=== PATIENT | female | born 1930 | race Caucasian/White ===

== ENCOUNTER 2017-01-18 18:12 | Inpatient (IN) | payer MEDICARE ==
[~2017-01-18] VITALS: Ht 167.6 cm; Wt 82.5 kg
[2017-01-18 18:59] VITALS: BP 133/83; PULSE 68; RESP 20; O2SAT 92
[2017-01-18] MEDS ORDERED: SODIUM CHLOR 0.9% 1000 ML INJ 1,000 ML IV ONE (19:21)
[2017-01-18] MEDS ORDERED: valACYclovir HCL 500 MG TAB PO ONE (19:30)
[2017-01-18] MEDS ORDERED: SODIUM CHLORIDE 0.9% FLUSH 10 ML FLUSH IVF PRN (19:30)
[2017-01-18] MEDS ORDERED: ONDANSETRON HCL 4 MG/2 ML VIAL IVP ONE (19:30)
--- NOTE | 2017-01-18 19:35 | PD ---
HPI Chief Complaint: General Weakness Time Seen by Provider: 19:20 Travel History International Travel<30 days: No Contact w/Intl Traveler<30days: No Traveled to known affect area: No History of Present Illness HPI 86-year-old female brought in by EMS from her home where she lives with her daughter with reports of altered mental status. Decreased food intake for the past one half days. Patient reportedly is sleeping a lot. Patient has a history of heart attack approximately 5 years ago. Patient has no significant complaints other than she is thirsty. She feels she is brought in as her daughter feels she cannot care for her anymore. Patient has allergies to sulfa, erythromycin, as omeprazole, omeprazole, and penicillin. Patient has no complaints of pain, headache, shortness of breath, chest pain, abdominal pain , or urinary symptoms. Patient is not diabetic. Her only chief complaint is she is thirsty. PFSH Past Medical History Arthritis: Yes (PREETHI KNEES AND PREETHI WRISTS R/T OSTEOARTHRITIS) Asthma: Yes Cancer: No Cardiac Catheterization: Yes Cardiovascular Problems: Yes Chest Pain: Yes COPD: Yes Coronary Artery Disease: Yes Diminished Hearing: Yes (LEFT EAR) Hypertension: Yes Myocardial Infarction: Yes (03/24) Menopausal: Yes Past Surgical History Abdominal Surgery: Yes (GALLBLADDER) Cholecystectomy: Yes Coronary Stent: Yes Eye Surgery: Yes (CATARACTS BILATERAL EYES) Genitourinary Surgery: Yes (BLADDER ATROPHY) Oral Surgery: Yes (TEETH EXTRACTION FOR DENTURES, TONSILLECTOMY) Social History Alcohol Use: No Tobacco Use: No Substance Use: No Allergies-Medications (Allergen,Severity, Reaction): Coded Allergies: Sulfa (Sulfonamide Antibiotics) (Verified Allergy, Severe, 01/01/17) erythromycin base (Verified Allergy, Severe, 01/01/17) penicillin G (Verified Allergy, Severe, 01/01/17) esomeprazole (Verified Allergy, Intermediate, Diarrhea, 01/01/17) omeprazole (Verified Allergy, Intermediate, Diarrhea, 01/01/17) Reported Meds & Prescriptions Reported Meds & Active Scripts Active No Active Prescriptions or Reported Medications Review of Systems Except as stated in HPI: all other systems reviewed are Neg General / Constitutional: No: Fever Eyes: No: Visual changes HENT: No: Headaches Cardiovascular: No: Chest Pain or Discomfort Respiratory: No: Shortness of Breath Gastrointestinal: No: Abdominal Pain Genitourinary: No: Dysuria Musculoskeletal: No: Pain Skin: No Rash Neurologic: No: Weakness Psychiatric: No: Depression Endocrine: No: Polydipsia Hematologic/Lymphatic: No: Easy Bruising Physical Exam Narrative GENERAL: Patient appears in no acute distress. She is alert and oriented and talkative. SKIN: Warm and dry. Normal color. Normal turgor. Patient has obvious fullness herpes zoster rash to the right thoracic chest wall at the T6 7 level. She denies pain in this area. It wraps around the right breast is no sign of abscess or significant cellulitis. HEAD: Atraumatic. Normocephalic. EYES: Pupils equal and round. No scleral icterus. No injection or drainage. ENT: No nasal bleeding or discharge. Mucous membranes pink and moist. Pharynx is clear. Airway is patent. NECK: Trachea midline. Supple nontender. CARDIOVASCULAR: Regular rate and rhythm. RESPIRATORY: No accessory muscle use. Clear to auscultation. Breath sounds equal bilaterally. GASTROINTESTINAL: Abdomen soft, non-tender, nondistended. Hepatic and splenic margins not palpable. MUSCULOSKELETAL: Extremities without clubbing, cyanosis, or edema. No obvious deformities. NEUROLOGICAL: Awake and alert. No obvious cranial nerve deficits. Motor grossly within normal limits. Five out of 5 muscle strength in the arms and legs. Normal speech. PSYCHIATRIC: Appropriate mood and affect; insight and judgment normal. Data Data Last Documented VS Vital Signs Date Time Temp Pulse Resp B/P (MAP) Pulse Ox O2 Delivery O2 Flow Rate FiO2 01/18/17 19:20 20 97 Nasal Cannula 2.00 01/18/17 18:59 68 133/83 (100) Orders Orders Electrocardiogram (01/18/17 19:21) Complete Blood Count With Diff (01/18/17 19:21) Comprehensive Metabolic Panel (01/18/17 19:21) Magnesium (Mg) (01/18/17 19:21) Ckmb (Isoenzyme) Profile (01/18/17 19:21) Troponin I (01/18/17 19:21) Act Partial Throm Time (Ptt) (01/18/17 19:21) Prothrombin Time / Inr (Pt) (01/18/17 19:21) Urinalysis - C+S If Indicated (01/18/17 19:21) Chest, Single Ap (01/18/17 19:21) Ecg Monitoring (01/18/17 19:21) Iv Access Insert/Monitor (01/18/17 19:21) Oximetry (01/18/17 19:21) Ondansetron Inj (Zofran Inj) (01/18/17 19:30) Sodium Chloride 0.9% Flush (Ns Flush) (01/18/17 19:30) Sodium Chlor 0.9% 1000 Ml Inj (Ns 1000 M (01/18/17 19:21) Valacyclovir (Valtrex) (01/18/17 19:30) Lactic Acid (01/18/17 19:21) Admit Order (Ed Use Only) (01/18/17 21:45) Labs Laboratory Tests Test 01/18/17 19:15 01/18/17 20:05 01/18/17 21:15 White Blood Count 7.3 TH/MM3 Red Blood Count 5.36 MIL/MM3 Hemoglobin 15.1 GM/DL Hematocrit 46.0 % Mean Corpuscular Volume 85.8 FL Mean Corpuscular Hemoglobin 28.1 PG Mean Corpuscular Hemoglobin Concent 32.8 % Red Cell Distribution Width 15.4 % Platelet Count 196 TH/MM3 Mean Platelet Volume 9.6 FL Neutrophils (%) (Auto) 61.4 % Lymphocytes (%) (Auto) 23.8 % Monocytes (%) (Auto) 12.8 % Eosinophils (%) (Auto) 1.4 % Basophils (%) (Auto) 0.6 % Neutrophils # (Auto) 4.5 TH/MM3 Lymphocytes # (Auto) 1.7 TH/MM3 Monocytes # (Auto) 0.9 TH/MM3 Eosinophils # (Auto) 0.1 TH/MM3 Basophils # (Auto) 0.0 TH/MM3 CBC Comment DIFF FINAL Differential Comment Prothrombin Time 10.9 SEC Prothromb Time International Ratio 1.0 RATIO Activated Partial Thromboplast Time 26.4 SEC Blood Urea Nitrogen 47 MG/DL Creatinine 4.19 MG/DL Random Glucose 87 MG/DL Total Protein 6.2 GM/DL Albumin 2.7 GM/DL Calcium Level 8.2 MG/DL Magnesium Level 2.3 MG/DL Alkaline Phosphatase 85 U/L Aspartate Amino Transf (AST/SGOT) 21 U/L Alanine Aminotransferase (ALT/SGPT) 13 U/L Total Bilirubin 0.6 MG/DL Sodium Level 136 MEQ/L Potassium Level 4.0 MEQ/L Chloride Level 100 MEQ/L Carbon Dioxide Level 26.9 MEQ/L Anion Gap 9 MEQ/L Estimat Glomerular Filtration Rate 10 ML/MIN Total Creatine Kinase 50 U/L Troponin I LESS THAN 0.02 NG/ML Lactic Acid Level 1.0 mmol/L [facility] Medical Decision Making Medical Screen Exam Complete: Yes Emergency Medical Condition: Yes Medical Record Reviewed: Yes Differential Diagnosis Altered Mental status. Weakness. Electrolyte imbalance. Cardiac syndrome. Shingles. Dehydration. UTI. Narrative Course Patient appears medically stable at time of exam. EKG and chest x-ray are ordered. Labs ordered including CBC, CMP, cardiac panel, lactic acid, and urinalysis. Patient is given 1000 mL of normal saline bolus as well as 1000 mg valacyclovir by mouth. CBC is unremarkable. Coagulation studies are normal. Lactic acid is 1.0. CMP shows normal electrolytes with sodium 136, potassium 4.0. Chloride 100. BUN is significantly elevated at 47 with a creatinine of 4.19. GFR is estimated at 10. Patient has no history of previous renal insufficiency. Calcium is 8.2, troponin is less than 0.02. Total protein is 6.2 and albumin is 2.7. Urinalysis is sent and pending. Call was placed to the hospitalist for admission for renal failure. Patient was discussed with Dr. Villalobos who accepted the patient for admission. Diagnosis Primary Impression: Shingles outbreak Qualified Codes: B02.9 - Zoster without complications Additional Impression: Acute renal failure Qualified Codes: N17.9 - Acute kidney failure, unspecified Admitting Information Admitting Physician Requests: Admit Referrals: Primary Care Physician Scripts No Active Prescriptions or Reported Meds Condition: Stable William Feng Jan 18, 2017 19:35
--- NOTE | 2017-01-18 19:44 | RADRPT ---
EXAM DATE/TIME: 01/18/2017 19:37 [facility] COMPARISON: No previous studies available for comparison. INDICATIONS : Cough for one day. MEDICAL HISTORY : None. SURGICAL HISTORY : None. ENCOUNTER: Initial ACUITY: 1 day PAIN SCORE: 0/10 LOCATION: Bilateral chest FINDINGS: A single view of the chest demonstrates the lungs to be symmetrically aerated without evidence of mas s, infiltrate or effusion. The cardiomediastinal contours are unremarkable. Osseous structures are intact. CONCLUSION: Normal examination. The acromial clavicular joint is widened on the left likely chronic. Contreras Johnson MD on January 18, 2017 at 19:42 Board Certified Radiologist. This report was verified electronically.
[2017-01-18 20:00] VITALS: BP 139/78; PULSE 60; RESP 14; O2SAT 97
[2017-01-18 20:40] LABS: AUTOMATED NEUTROPHIL # 4.5 TH/MM3 (1.8-7.7); BASOPHIL % 0.6 % (0.0-2.0); EOSINOPHIL # 0.1 TH/MM3 (0-0.4); EOSINOPHIL % 1.4 % (0.0-4.0); HEMOGLOBIN 15.1 GM/DL (11.6-15.3); LYMPH % 23.8 % (9.0-44.0); LYMPHOCYTE # 1.7 TH/MM3 (1.0-4.8); MEAN CELL VOLUME 85.8 FL (80.0-100.0); MEAN CORPUSCULAR HEMOGLOBIN 28.1 PG (27.0-34.0); MEAN CORPUSCULAR HGB CONC 32.8 % (32.0-36.0); MEAN PLATELET VOLUME 9.6 FL (7.0-11.0); MONO % 12.8 % (0.0-8.0); MONOCYTE # 0.9 TH/MM3 (0-0.9); NEUT % 61.4 % (16.0-70.0); PLATELET COUNT 196 TH/MM3 (150-450); RED BLOOD COUNT 5.36 MIL/MM3 (4.00-5.30); RED CELL DISTRIBUTION WIDTH 15.4 % (11.6-17.2); WHITE BLOOD COUNT 7.3 TH/MM3 (4.0-11.0)
[2017-01-18 20:54] LABS: PROTHROMBIN TIME - PATIENT 10.9 SEC (9.8-11.6)
[2017-01-18 21:00] VITALS: BP 134/74
[2017-01-18 21:09] LABS: ALT (GPT) 13 U/L (10-53)
[2017-01-18 21:27] LABS: ALBUMIN 2.7 GM/DL (3.4-5.0); ALKALINE PHOSPHATASE 85 U/L (45-117); AST (GOT) 21 U/L (15-37); BICARBONATE 26.9 MEQ/L (21.0-32.0); BLOOD UREA NITROGEN 47 MG/DL (7-18); CALCIUM 8.2 MG/DL (8.5-10.1); CHLORIDE 100 MEQ/L (98-107); CREATININE 4.19 MG/DL (0.50-1.00); GLOMERULAR FILTRATION RATE 10 ML/MIN (>89); GLUCOSE,RANDOM 87 MG/DL (74-106); MAGNESIUM 2.3 MG/DL (1.5-2.5); SODIUM (NA) 136 MEQ/L (136-145); TOTAL BILIRUBIN ADULT 0.6 MG/DL (0.2-1.0); TOTAL PROTEIN 6.2 GM/DL (6.4-8.2); TROPONIN I LESS THAN 0.02 NG/ML (0.02-0.05)
--- NOTE | 2017-01-18 21:52 | PD ---
Physical Exam Narrative I, Dr. Pal, have reviewed the advance practice practitioner's documentation and am in agreement, met with the patient face to face, made the diagnosis, and the medical decision making was done by me. *My assessment and Findings: Electrolyte abnormality vs. dehydration 86yo F was sent here by her daughter. She is not sure why but does complain of being thirsty. Denies any fever, chest pain, sob, n/v, abdominal pain, focal weakness or numbness. Pt does have a rash on right breast that appears to be like shingle that has crusted over. Pt has no pain there. Labs reviewed, no leukocytosis. H/H normal. BUN/creatinine is elevated at 47/4.19 which is higher thna prior of 13/0.83 in 2011. This is an acute change as far as we know. Will admit for ANNA. Troponin negative. Lactic acid normal. CXR normal. Data Data Last Documented VS Vital Signs Date Time Temp Pulse Resp B/P (MAP) Pulse Ox O2 Delivery O2 Flow Rate FiO2 01/18/17 19:20 20 97 Nasal Cannula 2.00 01/18/17 18:59 68 133/83 (100) Orders Orders Electrocardiogram (01/18/17 19:21) Complete Blood Count With Diff (01/18/17 19:21) Comprehensive Metabolic Panel (01/18/17 19:21) Magnesium (Mg) (01/18/17 19:21) Ckmb (Isoenzyme) Profile (01/18/17 19:21) Troponin I (01/18/17 19:21) Act Partial Throm Time (Ptt) (01/18/17 19:21) Prothrombin Time / Inr (Pt) (01/18/17 19:21) Urinalysis - C+S If Indicated (01/18/17 19:21) Chest, Single Ap (01/18/17 19:21) Ecg Monitoring (01/18/17 19:21) Iv Access Insert/Monitor (01/18/17 19:21) Oximetry (01/18/17 19:21) Ondansetron Inj (Zofran Inj) (01/18/17 19:30) Sodium Chloride 0.9% Flush (Ns Flush) (01/18/17 19:30) Sodium Chlor 0.9% 1000 Ml Inj (Ns 1000 M (01/18/17 19:21) Valacyclovir (Valtrex) (01/18/17 19:30) Lactic Acid (01/18/17 19:21) Admit Order (Ed Use Only) (01/18/17 21:45) Labs Laboratory Tests Test 01/18/17 19:15 01/18/17 20:05 01/18/17 21:15 White Blood Count 7.3 TH/MM3 Red Blood Count 5.36 MIL/MM3 Hemoglobin 15.1 GM/DL Hematocrit 46.0 % Mean Corpuscular Volume 85.8 FL Mean Corpuscular Hemoglobin 28.1 PG Mean Corpuscular Hemoglobin Concent 32.8 % Red Cell Distribution Width 15.4 % Platelet Count 196 TH/MM3 Mean Platelet Volume 9.6 FL Neutrophils (%) (Auto) 61.4 % Lymphocytes (%) (Auto) 23.8 % Monocytes (%) (Auto) 12.8 % Eosinophils (%) (Auto) 1.4 % Basophils (%) (Auto) 0.6 % Neutrophils # (Auto) 4.5 TH/MM3 Lymphocytes # (Auto) 1.7 TH/MM3 Monocytes # (Auto) 0.9 TH/MM3 Eosinophils # (Auto) 0.1 TH/MM3 Basophils # (Auto) 0.0 TH/MM3 CBC Comment DIFF FINAL Differential Comment Prothrombin Time 10.9 SEC Prothromb Time International Ratio 1.0 RATIO Activated Partial Thromboplast Time 26.4 SEC Blood Urea Nitrogen 47 MG/DL Creatinine 4.19 MG/DL Random Glucose 87 MG/DL Total Protein 6.2 GM/DL Albumin 2.7 GM/DL Calcium Level 8.2 MG/DL Magnesium Level 2.3 MG/DL Alkaline Phosphatase 85 U/L Aspartate Amino Transf (AST/SGOT) 21 U/L Alanine Aminotransferase (ALT/SGPT) 13 U/L Total Bilirubin 0.6 MG/DL Sodium Level 136 MEQ/L Potassium Level 4.0 MEQ/L Chloride Level 100 MEQ/L Carbon Dioxide Level 26.9 MEQ/L Anion Gap 9 MEQ/L Estimat Glomerular Filtration Rate 10 ML/MIN Total Creatine Kinase 50 U/L Troponin I LESS THAN 0.02 NG/ML Lactic Acid Level 1.0 mmol/L [facility] Supervised Visit with YING: Yes Interpretation(s) EKG: Sinus bradycardia at 57bpm. Normal axis. No ST segment elevation or depression. Diagnosis Primary Impression: Shingles outbreak Qualified Codes: B02.9 - Zoster without complications Additional Impression: Acute renal failure Qualified Codes: N17.9 - Acute kidney failure, unspecified Referrals: Primary Care Physician Scripts No Active Prescriptions or Reported Meds Condition: Deandra Chandra DO Jan 18, 2017 21:52
[2017-01-18] MEDS ORDERED: HEPARIN SODIUM - SQ 10,000 UNITS/ML VIAL SQ SCH (22:00)
[2017-01-18 22:05] LABS: BLOOD, URINE SMALL (NEG); GLUCOSE,URINE NEG (NEG); HYALINE CAST, URINE 50 /lpf (RARE); KETONE, URINE NEG (NEG); MUCUS URINE FEW /lpf (OCC); NITRITE,URINE NEG (NEG); SQUAMOUS EPITHELIAL CELL URINE 5 /hpf (0-5); URINE COLOR YELLOW (YELLW/STRAW); URINE LEUKOCYTE ESTERASE SMALL (NEG)
[2017-01-18 22:14] LABS: BILIRUBIN, URINE NEG (NEG)
[2017-01-18] MEDS ORDERED: SODIUM CHLORIDE 0.9% FLUSH 10 ML FLUSH IV FLUSH PRN (22:30)
[2017-01-18] MEDS ORDERED: NALOXONE HCL 0.4 MG/ML AMP IV PUSH PRN (22:30)
[2017-01-18] MEDS ORDERED: ACETAMINOPHEN 325 MG TAB PO PRN (22:30)
--- NOTE | 2017-01-18 23:07 | RADRPT ---
EXAM DATE/TIME: 01/18/2017 22:39 [facility] COMPARISON: No previous studies available for comparison. INDICATIONS : Increased BUN and creatinine. MEDICAL HISTORY : Chronic obstructive pulmonary disease. Cardiovascular disease CVA. Asthma. Dyspnea. Myocardial infa rction. SURGICAL HISTORY : Tonsillectomy. Cholecystectomy. Bilateral cataracts. ENCOUNTER: Initial ACUITY: 1 day PAIN SCORE: 0/10 LOCATION: Bilateral inguinal MEASUREMENTS: RIGHT KIDNEY: 9.9 x 4.8 x 4.6 cm LEFT KIDNEY: 9.0 x 4.1 x 4.5 cm FINDINGS: RIGHT KIDNEY: Renal cortex is normal in thickness and echotexture. No hydronephrosis, stone, or mass. LEFT KIDNEY: Renal cortex is normal in thickness and echotexture. No hydronephrosis, stone, or mass. BLADDER: Within normal limits given the degree of distension. CONCLUSION: Renal ultrasound within normal limits. Fernando Jorgensen MD on January 18, 2017 at 23:05 Board Certified Radiologist. This report was verified electronically.
[2017-01-18 23:19] VITALS: BP 134/67; PULSE 62; RESP 18; TEMP 97.5; O2SAT 98
[2017-01-19] VITALS (7 sets, daily range): BP systolic 118–136; BP diastolic 62–72; PULSE 56–61; RESP 18–20; TEMP 97.4–97.7; O2SAT 92–98
--- NOTE | 2017-01-19 00:10 | HHI.HP ---
[facility] Service [facility]ists Primary Care Physician No Primary Care Physician Admission Diagnosis Acute Renal Failure/Shingles Diagnoses: Travel History International Travel<30 Days: No Contact w/Intl Traveler <30 Da: No Traveled to Known Affected Are: No History of Present Illness 86-year-old female brought to the emergency department for altered mental status. The patient's daughter provided most of the history to the emergency department physician. On our interview, the patient could only tell me that she has not been feeling well for some period of time. She also reports pain along her right upper thorax. Per emergency department records, the patient has been lethargic and has had decreased food intake for the past 1-1/2 days. She denies chest pain, headache, shortness of breath or abdominal pain. Physical exam was remarkable for a zoster-appearing rash in the distribution of T6/T7. Lab work was significant for a creatinine of 4.19 (creatinine from 2012 was 0.83). Chest x-ray showed no evidence of acute disease. Patient without leukocytosis and is afebrile. Review of Systems Denies fever or chills Denies blurry vision, otorrhea, rhinorrhea Denies sore throat and cough No chest pain, palpitations, shortness of breath No abdominal pain Denies constipation/diarrhea/nausea/vomiting Denies muscle pain/weakness No rashes Past Family Social History Past Medical History Unable to obtain from patient Her medical records the patient has a past medical history significant for osteoarthritis, coronary artery disease, CVA, cataracts, hypertension Past Surgical History Unable to obtain from patient. Medical record review showed cholecystectomy, heart catheter with stent placement, cataract surgery, bladder surgery, tonsillectomy Reported Medications Reported Meds & Active Scripts Active No Active Prescriptions or Reported Medications Allergies: Coded Allergies: Sulfa (Sulfonamide Antibiotics) (Verified Allergy, Severe, 01/01/17) erythromycin base (Verified Allergy, Severe, 01/01/17) penicillin G (Verified Allergy, Severe, 01/01/17) esomeprazole (Verified Allergy, Intermediate, Diarrhea, 01/01/17) omeprazole (Verified Allergy, Intermediate, Diarrhea, 01/01/17) Family History Unable to obtain Social History Patient denies tobacco, alcohol and illicit drugs. Physical Exam Vital Signs Vital Signs Date Time Temp Pulse Resp B/P (MAP) Pulse Ox O2 Delivery O2 Flow Rate FiO2 01/18/17 23:19 97.5 62 18 134/67 (89) 98 01/18/17 21:00 134/74 (94) 01/18/17 20:00 60 14 139/78 (98) 97 Nasal Cannula 2.00 01/18/17 19:20 20 97 Nasal Cannula 2.00 01/18/17 18:59 68 20 133/83 (100) 92 Physical Exam GENERAL: White female lying in bed sleeping SKIN: Herpes zoster rash with one open area along the side of the right thoracic chest wall. Patient states the area is tender to palpation. HEAD: Atraumatic. Normocephalic. No temporal or scalp tenderness. EYES: Pupils equal round and reactive. Extraocular motions intact. No scleral icterus. No injection or drainage. ENT: Nose without bleeding, purulent drainage or septal hematoma. Throat without erythema, tonsillar hypertrophy or exudate. Uvula midline. Airway patent. NECK: Trachea midline. No JVD or lymphadenopathy. Supple, nontender, no meningeal signs. CARDIOVASCULAR: Regular rate and rhythm without murmurs, gallops, or rubs. RESPIRATORY: Clear to auscultation. Breath sounds equal bilaterally. No wheezes , rales, or rhonchi. GASTROINTESTINAL: Abdomen soft, non-tender, nondistended. No hepato-splenomegaly , or palpable masses. No guarding. MUSCULOSKELETAL: Extremities without clubbing, cyanosis, or edema. No joint tenderness, effusion, or edema noted. No calf tenderness. NEUROLOGICAL: Awake and alert. Cranial nerves II through XII intact. Motor and sensory grossly within normal limits. Normal speech. Laboratory Laboratory Tests Test 01/18/17 19:15 01/18/17 20:05 01/18/17 21:15 White Blood Count 7.3 Red Blood Count 5.36 Hemoglobin 15.1 Hematocrit 46.0 Mean Corpuscular Volume 85.8 Mean Corpuscular Hemoglobin 28.1 Mean Corpuscular Hemoglobin Concent 32.8 Red Cell Distribution Width 15.4 Platelet Count 196 Mean Platelet Volume 9.6 Neutrophils (%) (Auto) 61.4 Lymphocytes (%) (Auto) 23.8 Monocytes (%) (Auto) 12.8 Eosinophils (%) (Auto) 1.4 Basophils (%) (Auto) 0.6 Neutrophils # (Auto) 4.5 Lymphocytes # (Auto) 1.7 Monocytes # (Auto) 0.9 Eosinophils # (Auto) 0.1 Basophils # (Auto) 0.0 CBC Comment DIFF FINAL Differential Comment Prothrombin Time 10.9 Prothromb Time International Ratio 1.0 Activated Partial Thromboplast Time 26.4 Blood Urea Nitrogen 47 Creatinine 4.19 Random Glucose 87 Total Protein 6.2 Albumin 2.7 Calcium Level 8.2 Magnesium Level 2.3 Alkaline Phosphatase 85 Aspartate Amino Transf (AST/SGOT) 21 Alanine Aminotransferase (ALT/SGPT) 13 Total Bilirubin 0.6 Sodium Level 136 Potassium Level 4.0 Chloride Level 100 Carbon Dioxide Level 26.9 Anion Gap 9 Estimat Glomerular Filtration Rate 10 Total Creatine Kinase 50 Troponin I LESS THAN 0.02 Lactic Acid Level 1.0 Urine Color YELLOW Urine Turbidity HAZY Urine pH 5.0 Urine Specific [place] 1.018 Urine Protein 30 Urine Glucose (UA) NEG Urine Ketones NEG Urine Occult Blood SMALL Urine Nitrite NEG Urine Bilirubin NEG Urine Urobilinogen 2.0 Urine Leukocyte Esterase SMALL Urine RBC 12 Urine WBC 3 Urine Squamous Epithelial Cells 5 Urine Hyaline Casts 50 Urine Mucus FEW Microscopic Urinalysis Comment CULT NOT INDICATED Result Diagram: 01/18/17191401/18/171914 Imaging Last 72 hours Impressions Chest X-Ray 01/18/171920 Signed Impressions: Service Date/Time: Wednesday, January 18, 2017 19:37 - CONCLUSION: Normal examination. The acromial clavicular joint is widened on the left likely chronic. Contreras Johnson MD Renal Ultrasound 01/18/17 0000 Signed Impressions: Service Date/Time: Wednesday, January 18, 2017 22:39 - CONCLUSION: Renal ultrasound within normal limits. Fernando Jorgensen MD Caprini VTE Risk Assessment Caprini VTE Risk Assessment: Mod/High Risk (score >= 2) Caprini Risk Assessment Model Point Value = 1 Point Value = 2 Point Value = 3 Point Value = 5 Age 41-60 Minor surgery BMI > 25 kg/m2 Swollen legs Varicose veins or History of unexplained or recurrent spontaneous Oral contraceptives or hormone replacement Sepsis (< 1 month) Serious lung disease, including pneumonia (< 1 month) Abnormal pulmonary function Acute myocardial infarction Congestive heart failure (< 1 month) History of inflammatory bowel disease Medical patient at bed rest Age 61-74 Arthroscopic surgery Major open surgery (> 45 min) Laparoscopic surgery (> 45 min) Malignancy Confined to bed (> 72 hours) Immobilizing plaster cast Central venous access Age >= 75 History of VTE Family history of VTE Factor V Leiden Prothrombin [id number] Lupus anticoagulant Anticardiolipin antibodies Elevated serum homocysteine Heparin-induced thrombocytopenia Other congenital or acquired thrombophilia Stroke (< 1 month) Elective arthroplasty Hip, pelvis, or leg fracture Acute spinal cord injury (< 1 month) Prophylaxis Regimen Total Risk Factor Score Risk Level Prophylaxis Regimen 0-1 Low Early ambulation 2 Moderate Order ONE of the following: *Sequential Compression Device (SCD) *Heparin 5000 units SQ BID 3-4 Higher Order ONE of the following medications: *Heparin 5000 units SQ TID *Enoxaparin/Lovenox 40 mg SQ daily (WT < 150 kg, CrCl > 30 mL/min) *Enoxaparin/Lovenox 30 mg SQ daily (WT < 150 kg, CrCl > 10-29 mL/min) *Enoxaparin/Lovenox 30 mg SQ BID (WT < 150 kg, CrCl > 30 mL/min) AND/OR *Sequential Compression Device (SCD) 5 or more Highest Order ONE of the following medications: *Heparin 5000 units SQ TID (Preferred with Epidurals) *Enoxaparin/Lovenox 40 mg SQ daily (WT < 150 kg, CrCl > 30 mL/min) *Enoxaparin/Lovenox 30 mg SQ daily (WT < 150 kg, CrCl > 10-29 mL/min) *Enoxaparin/Lovenox 30 mg SQ BID (WT < 150 kg, CrCl > 30 mL/min) AND *Sequential Compression Device (SCD) Assessment and Plan Assessment and Plan 86-year-old female presents with acute kidney injury and herpes zoster of unknown duration 1. ANNA Patient without any known history of renal failure Renal ultrasound within normal limits IV fluids Consult nephrology, appreciate recommendations Follow BMP 2. Herpes zoster Duration of rash unknown to patient and daughter Valacyclovir FEN Renal diet Fluids as above Electrolytes: Monitor and replete when necessary Heparin Physician Certification 2 Midnight Certification Type: Admission for Inpatient Services Order for Inpatient Services The services are ordered in accordance with Medicare regulations or non- Medicare payer requirements, as applicable. In the case of services not specified as inpatient-only, they are appropriately provided as inpatient services in accordance with the 2-midnight benchmark. Estimated LOS (days): 2 2 days is the estimated time the patient will need to remain in the hospital, assuming treatment plan goals are met and no additional complications. Post-Hospital Plan: Not yet determined Bhakti Villalobos MD Jan 19, 2017 00:10
[2017-01-19] MEDS: SODIUM CHLOR 0.9% 1000 ML INJ 1,000 ML IV SCH ×3 (01:35→20:15)
[2017-01-19] MEDS: valACYclovir HCL 500 MG TAB PO SCH ×3 (05:50→21:33)
[2017-01-19] MEDS: SODIUM CHLORIDE 0.9% FLUSH 10 ML FLUSH IV FLUSH SCH ×2 (08:05→21:38)
[2017-01-19] MEDS: HEPARIN SODIUM - SQ 10,000 UNITS/ML VIAL SQ SCH ×2 (08:06→21:33)
[2017-01-19 08:12] LABS: AUTOMATED NEUTROPHIL # 2.2 TH/MM3 (1.8-7.7); BASOPHIL % 0.2 % (0.0-2.0); EOSINOPHIL # 0.1 TH/MM3 (0-0.4); EOSINOPHIL % 1.7 % (0.0-4.0); HEMATOCRIT 30.6 % (35.0-46.0); LYMPH % 26.1 % (9.0-44.0); MEAN CELL VOLUME 87.5 FL (80.0-100.0); MEAN CORPUSCULAR HEMOGLOBIN 28.5 PG (27.0-34.0); MEAN CORPUSCULAR HGB CONC 32.5 % (32.0-36.0); MEAN PLATELET VOLUME 9.6 FL (7.0-11.0); MONO % 14.8 % (0.0-8.0); MONOCYTE # 0.6 TH/MM3 (0-0.9); NEUT % 57.2 % (16.0-70.0); PLATELET COUNT 120 TH/MM3 (150-450); RED CELL DISTRIBUTION WIDTH 15.2 % (11.6-17.2); WHITE BLOOD COUNT 3.9 TH/MM3 (4.0-11.0)
--- NOTE | 2017-01-19 13:11 | HHI.PR ---
Subjective Remarks Follow-up for altered mental status and acute renal failure Patient is AAO 2. She is able to give me her full name and location. Patient' s daughter and granddaughter at the bedside during the interview. Patient stated that patient does have underlying dementia. Her confusion seems to improve but she does repeat the same conversation at times. Patient stated that she has no concern and feels great. Per patient's daughter patient has not been feeling well and has been sleeping the past 10 days. She stated that she barely ate the past 10 days and thinks that she is very dehydrated. Objective Vitals Vital Signs Date Time Temp Pulse Resp B/P (MAP) Pulse Ox O2 Delivery O2 Flow Rate FiO2 01/19/17 08:00 97.6 61 20 128/65 (86) 94 01/19/17 04:37 97.7 57 20 134/70 (91) 98 01/19/17 00:10 58 01/18/17 23:19 97.5 62 18 134/67 (89) 98 01/18/17 21:00 134/74 (94) 01/18/17 20:00 60 14 139/78 (98) 97 Nasal Cannula 2.00 01/18/17 19:20 20 97 Nasal Cannula 2.00 01/18/17 18:59 68 20 133/83 (100) 92 I/O 01/18/17 01/18/17 01/18/17 01/19/17 01/19/17 01/19/17 07:00 15:00 23:00 07:00 15:00 23:00 Intake Total 1000 ml Output Total 100 ml Balance 900 ml Intake IV Total 1000 ml Output Urine Total 100 ml # Voids 1 Result Diagram: 01/19/17 0724 01/18/171914 Objective Remarks GENERAL: in NAD CARDIOVASCULAR: Regular rate and rhythm without murmurs, gallops, or rubs. RESPIRATORY: Breath sounds equal bilaterally. No accessory muscle use. GASTROINTESTINAL: Abdomen soft, non-tender, nondistended. MUSCULOSKELETAL: No cyanosis, or edema. BACK: Nontender without obvious deformity. No CVA tenderness. NEURO: AAO X 2. Upper and lower extremity strength grossly intact. Sensation is intact. Medications and IVs Current Medications Ondansetron HCl (Zofran Inj) 4 mg ONCE ONCE IVP Last administered on t 20:09; Start 01/18/17 at 19:30; Stop 01/18/17 at 19:31; Status DC Sodium Chloride (NS Flush) 2 ml UNSCH PRN IVF FLUSH AFTER USING IV ACCESS Last administered on 01/18/17 20:09; Start 01/18/17 at 19:30; Stop 01/19/17 at 00:26 ; Status DC Sodium Chloride 1,000 ml @ 1,000 mls/hr Q1H ONCE IV Last administered on 20:08; Start 01/18/17 at 19:21; Stop 01/18/17 at 20:20; Status DC Valacyclovir HCl (Valtrex) 1,000 mg ONCE ONCE PO Last administered on 20:09; Start 01/18/17 at 19:30; Stop 01/18/17 at 19:31; Status DC Sodium Chloride (NS Flush) 2 ml UNSCH PRN IV FLUSH FLUSH AFTER USING IV ACCESS ; Start 01/18/17 at 22:30 Sodium Chloride (NS Flush) 2 ml BID IV FLUSH ; Start 01/19/17 at 09:00 Acetaminophen (Tylenol) 650 mg Q4H PRN PO TEMP > 100.4; Start 01/18/17 at 22:30 Heparin Sodium (Porcine) (Heparin Inj) 5,000 units Q8H SQ ; Start 01/18/17 at 22 :00; Stop 01/19/17 at 00:25; Status DC Naloxone HCl (Narcan Inj) 0.4 mg UNSCH PRN IV PUSH SEE LABEL COMMENTS; Start 01/18/17 at 22:30 Sodium Chloride 1,000 ml @ 100 mls/hr Q10H IV Last administered on 01/19/17 01:35; Start 01/19/17 at 00:15 Valacyclovir HCl (Valtrex) 1,000 mg Q8HR PO Last administered on 01/19/17 05: 50; Start 01/19/17 at 06:00 Heparin Sodium (Porcine) (Heparin Inj) 5,000 units Q12HR SQ Last administered on 01/19/17 08:06; Start 01/19/17 at 09:00 A/P Assessment and Plan 86-year-old female presents with acute kidney injury and herpes zoster of unknown duration with decreased by mouth intake for the past 10 days due to fatigue Acute renal failure -Most likely secondary from dehydration since patient had decreased oral intake for the past 10 days. Renal ultrasound negative. -Pending BMP from today. -Continue with IV fluids. -Continue with strict ins and outs. Avoid nephrotoxins. -Aircraft Communicator already consulted. Herpes zoster -Duration of rash unknown to patient and daughter -Continue with Valacyclovir -Patient does complain of itchiness will start low-dose Claritin. Anemia -Unknown baseline. No active bleeding. May be due to acute renal failure. -Most likely secondary to hemoconcentration. Since WBC and platelets also decreased. -Continue to monitor. -Can be worked up as outpatient. DVT prophylaxis -Heparin renally dose. Lorena Huang MD Jan 19, 2017 13:11
[2017-01-19] MEDS ORDERED: PILL SPLITTER OTHER PRN (13:30)
[2017-01-19] MEDS: LORATADINE 10 MG TAB PO SCH (14:15)
--- NOTE | 2017-01-19 14:34 | MB ---
cc: ZAKI BRO MD DATE OF CONSULTATION 01/19/17 REASON FOR CONSULTATION Elevated BUN and creatinine for evaluation. HISTORY OF PRESENT ILLNESS This is an 86-year-old female with past medical history of hypertension, cerebrovascular accident, ischemic heart disease, osteoarthritis was brought to the hospital because of shingles in the back. I was called to see the patient because of elevated BUN and creatinine. The patient was found to have creatinine of 4.1. She does not know if she has any renal disease and she is very hard of hearing and not able to give much history. Most of the history was taken from the patient's chart according to which patient has shingles and was getting the treatment as outpatient and transferred to the hospital because of altered mental status, generalized weakness and was found to have elevated creatinine. The patient has not been eating very well for 1-2 days before admission. There is no history of nausea or vomiting. No history of diarrhea. Denies any abdominal pain. She has this pain in the back where the rash is. There is no history of dysuria, hematuria. She has urinary incontinence. PAST MEDICAL HISTORY Hypertension, ischemic heart disease, history of cerebrovascular accident. Osteoarthritis. PAST SURGICAL HISTORY Cataract surgery, cholecystectomy, cardiac catheterization with stent placement, tonsillectomy, bladder surgery. REVIEW OF SYSTEMS Limited since she is not answering some of the questions. Denies any headache, dizziness or blurring of vision. No shortness of breath. No chest pain. No history of any abdominal pain. She has pain in the back where she has the rash from the shingles. SOCIAL HISTORY The patient has no history of smoking or alcoholism. FAMILY HISTORY Noncontributory. ALLERGIES SHE IS ALLERGIC TO ERYTHROMYCIN, OMEPRAZOLE, ESOMEPRAZOLE, PENICILLIN G, SULFA DRUGS. MEDICATIONS Currently she is on the following medications: 1. Normal saline at 100 an hour. 2. Heparin 5000 units q. 12-hour. 3. Valtrex 1000 milligrams q. 8-hour. 4. Tylenol. 5. Narcan as needed. PHYSICAL EXAMINATION GENERAL: On examination the patient is awake, alert. She is [id number], not in acute distress. She has also possible underlying dementia. VITAL SIGNS: The last blood pressure is 128/65, temperature 97.6, oxygen saturation 94-98%. There is no hypotensive episode during this admission. HEENT: Pupils are mid constricted. Nonicteric sclera, conjunctiva pale. NECK: Supple. JVD is not elevated. LUNGS: The patient has bilateral good air entry with occasional wheezing. HEART: S1-S2, regular rhythm. ABDOMEN: Abdomen is soft, lax. There is no definite tenderness. Bowel sounds positive. EXTREMITIES: She has mild edema. INVESTIGATION WBC count is 3.9, hemoglobin 10.0, platelet count of 120, neutrophils __.2, sodium 136. Potassium 4.0, chloride 100, bicarb 26.9, BUN 47, creatinine 4.1. Calcium 8.2. AST, ALT normal. Trop I is less than 0.02. Albumin is 2.7, total protein 6.2, INR is 1.0. Urinalysis showing that there is protein of 13. Ultrasound of the kidneys done which shows kidneys are 9 to 9.9 cm. There is no hydronephrosis, stone or mass. Chest x-ray was done and it is showing no infiltrate. The repeat BMP is still pending. Previous creatinine was normal in 2011. ASSESSMENT/PLAN 1. Acute kidney injury. 2. Dehydration. 3. Herpes zoster. 4. Anemia and leukopenia. 5. History of CVA and possible underlying dementia. The patient has been nonoliguric. She had acute kidney injury, most likely this is related to either prerenal or possibility of Valtrex causing the acute kidney injury. I will check the urine sodium osmolality and agree with continuing the IV fluid and follow the urine output and the BUN and creatinine. Avoid any nephrotoxins. Thank you for the consultation. I will follow the patient while she is in the hospital. MD MARIAA Lerma/LIDA /12:57 PM /2:09 PM
[2017-01-19 14:35] LABS: BICARBONATE 23.8 MEQ/L (21.0-32.0); CALCIUM 7.2 MG/DL (8.5-10.1); CREATININE 4.18 MG/DL (0.50-1.00)
[2017-01-19 14:54] LABS: CALCIUM-PROTEIN CORRECTED 8.2 MG/DL (8.5-10.1); TOTAL PROTEIN 5.3 GM/DL (6.4-8.2)
[2017-01-19 22:59] LABS: SODIUM,RANDOM URINE 44 MEQ/L
[2017-01-19 23:47] LABS: OSMOLALITY,URINE 304 MOSM/KG (300-1300)
[2017-01-20] VITALS (7 sets, daily range): BP systolic 116–153; BP diastolic 63–81; PULSE 55–75; RESP 18–20; TEMP 96.2–98; O2SAT 90–96
[2017-01-20] MEDS: valACYclovir HCL 500 MG TAB PO SCH ×3 (06:14→21:47)
[2017-01-20] MEDS: SODIUM CHLOR 0.9% 1000 ML INJ 1,000 ML IV SCH (06:15)
[2017-01-20] MEDS: SODIUM CHLORIDE 0.9% FLUSH 10 ML FLUSH IV FLUSH SCH ×2 (08:14→21:00)
[2017-01-20] MEDS: HEPARIN SODIUM - SQ 10,000 UNITS/ML VIAL SQ SCH ×2 (08:15→21:00)
[2017-01-20] MEDS: LORATADINE 10 MG TAB PO SCH (08:15)
--- NOTE | 2017-01-20 11:06 | EKG ---
Date Performed: 01/18/2017 Time Performed: 21:34:07 PTAGE: 86 years EKG: SINUS BRADYCARDIA Consider anteroseptal ischemia BORDERLINE ECG PREVIOUS TRACING : 02/23/2012 20.03 DOCTOR: Jesse Hernandez Interpretating Date/Time 01/20/2017 11:05:19
--- NOTE | 2017-01-20 11:20 | HHI.NPPN ---
Subjective History of Present Illness 86-year-old female with past medical history of hypertension, cerebrovascular accident, ischemic heart disease, osteoarthritis was brought to the hospital because of shingles in the back. I was called to see the patient because of elevated BUN and creatinine. The patient was found to have creatinine of 4.1. Her Creatinine was 0.8 in 2011. Additional Remarks Patient is more alert, sitting on the chair and has itching in upper back, no SOB. Objective Data Data 01/20/17 01/21/17 19:00 07:00 # Voids 3 Vital Signs Date Time Temp Pulse Resp B/P (MAP) Pulse Ox O2 Delivery O2 Flow Rate FiO2 01/20/17 08:07 98.0 63 20 153/74 (100) 94 01/20/17 04:00 97.1 55 18 146/70 (95) 96 01/20/17 00:00 97.6 62 18 143/63 (89) 95 01/19/17 21:25 61 01/19/17 20:00 97.5 56 20 136/72 (93) 95 01/19/17 17:00 97.5 60 18 118/72 (87) 95 01/19/17 13:08 97.4 59 20 126/62 (83) 92 -: 01/19/17 0724 01/19/17 1230 Physical Exam General Appearance: No Acute Distress, Comfortable Eyes Eye Exam: Pupils Equal Throat Throat Exam: Oral Mucosa [place] & Moist Neck Neck Exam: Neck Supple Pulmonary Resp Exam: Breath Sounds Equal, No Distress, Rhonchi, Decreased Bases Cardiology CV Exam: Regular, Normal Sinus Rhythm Gastrointestinal/Abdomen GI Exam: Soft, Non-Tender, Bowel Sounds Present, Non-Distended Integumentary Skin Exam: Lesion(s) (rash with few vesicles in upper back.) Extremeties Extremities Exam: No Edema Neurologic Neuro Exam: Alert, Awake Assessment/Plan Assessment Summary: ANNA/Acute Renal Failure, Dehydration Problem List: (1) Macular degeneration, age related, nonexudative ICD Codes: H35.31 - Nonexudative age-related macular degeneration Status: Acute (2) Shingles outbreak ICD Codes: B02.9 - Zoster without complications Status: Acute (3) Acute renal failure ICD Codes: N17.9 - Acute kidney failure, unspecified Status: Acute Plan Patient has Acute kidney injury. Her Creatinine was 0.8 in 2011. Now non oliguric. Renal U/S showing normal size kidneys. Creatinine is almost same, 4.1, K is normal. Continue IVF, follow the urine out put and BMP. Problem Qualifiers (1) Shingles outbreak: Qualified Codes: B02.9 - Zoster without complications (2) Acute renal failure: Qualified Codes: N17.9 - Acute kidney failure, unspecified Candis Pascal MD Jan 20, 2017 11:20
--- NOTE | 2017-01-20 12:00 | HHI.PR ---
Subjective Remarks Follow-up visit on 86 year old who brought to ED due to altered metal status. She has a PMH of HTN, OA, CVA, cataracts, and hard or hearing. Patient seen and examined in room with granddaughter and grandson at bedside. She is awake and alert, in no acute distress after using bathroom. Patient repots that she does not remember how she was doing prior to coming to the hospital. States she was going to the bathroom without issues. Granddaughter states patient lives with daughter who had noticed patient was not eating as much and not using the bathroom as much either. Today patient states she is doing fine with no pain, denies fever, chills, nausea, vomiting or diarrhea. She does repot itching on her back from the rash that she currently has. Patient has discussed with granddaughter possibly going to [place] once she is discharged from the hospital. Objective Vitals Vital Signs Date Time Temp Pulse Resp B/P (MAP) Pulse Ox O2 Delivery O2 Flow Rate FiO2 01/20/17 08:07 98.0 63 20 153/74 (100) 94 01/20/17 04:00 97.1 55 18 146/70 (95) 96 01/20/17 00:00 97.6 62 18 143/63 (89) 95 01/19/17 21:25 61 01/19/17 20:00 97.5 56 20 136/72 (93) 95 01/19/17 17:00 97.5 60 18 118/72 (87) 95 01/19/17 13:08 97.4 59 20 126/62 (83) 92 I/O 01/19/17 01/19/17 01/19/17 01/20/17 01/20/17 01/20/17 07:00 15:00 23:00 07:00 15:00 23:00 # Voids 1 3 Result Diagram: 01/19/17 0724 01/19/17 1230 Imaging Last Impressions Chest X-Ray 01/18/17 1921 Signed Impressions: Service Date/Time: Wednesday, January 18, 2017 19:37 - CONCLUSION: Normal examination. The acromial clavicular joint is widened on the left likely chronic. Contreras Johnson MD Renal Ultrasound 01/18/17 0000 Signed Impressions: Service Date/Time: Wednesday, January 18, 2017 22:39 - CONCLUSION: Renal ultrasound within normal limits. Fernando Jorgensen MD Objective Remarks GENERAL: White female lying in bed, in no acute distress SKIN: Herpes zoster rash with open area along the side of the right thoracic chest wall as well as posterior right mid back. Patient states the area is tender to palpation. HEAD: Atraumatic. Normocephalic. No temporal or scalp tenderness. EYES: Pupils equal round and reactive. ENT: Nose without bleeding, purulent drainage or septal hematoma. Throat without erythema, tonsillar hypertrophy or exudate. Uvula midline. Airway patent. NECK: Trachea midline. CARDIOVASCULAR: Regular rate and rhythm without murmurs, gallops, or rubs. RESPIRATORY: Clear to auscultation. Breath sounds equal bilaterally. No wheezes , rales, or rhonchi. GASTROINTESTINAL: Abdomen soft, non-tender, nondistended. No guarding. MUSCULOSKELETAL: Extremities without clubbing, cyanosis, or edema. No joint tenderness, effusion, or edema noted. No calf tenderness. NEUROLOGICAL: Awake and alert. Motor and sensory grossly within normal limits. Normal speech, movies all extremities spontaneously. A/P Problem List: (1) Acute renal failure ICD Code: N17.9 - Acute kidney failure, unspecified Status: Acute (2) Shingles outbreak ICD Code: B02.9 - Zoster without complications Status: Acute Assessment and Plan 86-year-old female presents with acute kidney injury and herpes zoster of unknown duration, reports of low PO intake, AML progressive for the past two weeks per granddaughter. ANNA - Patient without any known history of renal failure - Renal ultrasound within normal limits - IV fluids, strict I&O's, voids recorded. Spoke to nurse aid and aid, please measure output. - Consult nephrology recommends continuing IVF, follow I&O's and BMP, appreciate recommendations - Follow BMP for today Herpes zoster - Duration of rash unknown to patient and daughter - Valacyclovir Discharge Planning Patient has already visited [facility] in the past, would like to go to [facility] when discharged. Still not ready to go home, continue following renal function. Attending Statement The exam, history, and the medical decision-making described in the above note were completed with the assistance of the mid-level provider. I reviewed and agree with the findings presented. I attest that I had a [id number] encounter with the patient on the same day, and personally performed and documented my assessment and findings in the medical record. Patient complains of itchiness at the shingle site. She stated that she realized that she was confused yesterday. She stated that she did not even know she was in the hospital. Patient is AAO 2. She has difficult time giving me the date which is her baseline. Otherwise she answers questions appropriately and understands. Her granddaughter and her at the bedside during the interview. They also stated that patient is doing a lot better. Patient states she's making good urine output. Urine output is not being documented. Gen NAD CV RR. no r/m.g Abd soft NDNT Acute renal failure non-oliguric Confusion, resolved. Dementia Shingles Patient seems back to her baseline. Kidney function not improving but she is making good urine output. Transcribing Operator Head following. Continue with IV fluids. Will give Atarax when necessary. Continue to monitor. Problem Qualifiers (1) Acute renal failure: Qualified Codes: N17.9 - Acute kidney failure, unspecified (2) Shingles outbreak: Qualified Codes: B02.9 - Zoster without complications Elliot Flores Jan 20, 2017 12:00 Lorena Huang MD Jan 20, 2017 14:27
[2017-01-20 13:57] LABS: HEMATOCRIT 41.6 % (35.0-46.0); HEMOGLOBIN 13.8 GM/DL (11.6-15.3); MEAN CELL VOLUME 86.3 FL (80.0-100.0); MEAN CORPUSCULAR HEMOGLOBIN 28.7 PG (27.0-34.0); MEAN CORPUSCULAR HGB CONC 33.2 % (32.0-36.0); MEAN PLATELET VOLUME 9.6 FL (7.0-11.0); PLATELET COUNT 150 TH/MM3 (150-450); RED BLOOD COUNT 4.82 MIL/MM3 (4.00-5.30); RED CELL DISTRIBUTION WIDTH 15.4 % (11.6-17.2); WHITE BLOOD COUNT 4.9 TH/MM3 (4.0-11.0)
[2017-01-20 14:14] LABS: BICARBONATE 24.4 MEQ/L (21.0-32.0); CALCIUM 7.7 MG/DL (8.5-10.1); CREATININE 4.26 MG/DL (0.50-1.00)
[2017-01-20] MEDS ORDERED: hydrOXYzine HCL 25 MG TAB PO ONE (14:30)
[2017-01-20] MEDS: CALAMINE/PRAMOXINE LOTION 180 ML BTL TOPICAL SCH ×2 (18:49→21:47)
[2017-01-21] VITALS: BP 125/82; PULSE 73; RESP 20; TEMP 97.7; O2SAT 96
[2017-01-21 04:00] VITALS: BP 134/75; PULSE 59; RESP 18; TEMP 98.6; O2SAT 96
[2017-01-21] MEDS: SODIUM CHLOR 0.9% 1000 ML INJ 1,000 ML IV SCH ×2 (04:16→16:00)
[2017-01-21] MEDS: valACYclovir HCL 500 MG TAB PO SCH ×2 (05:41→14:45)
[2017-01-21 08:00] VITALS: BP 150/83; PULSE 67; RESP 20; TEMP 97.5; O2SAT 99
[2017-01-21] MEDS: SODIUM CHLORIDE 0.9% FLUSH 10 ML FLUSH IV FLUSH SCH ×2 (09:00→21:00)
[2017-01-21] MEDS: hydrOXYzine HCL 25 MG TAB PO PRN (09:40)
[2017-01-21] MEDS: LORATADINE 10 MG TAB PO SCH (09:40)
[2017-01-21] MEDS: HEPARIN SODIUM - SQ 10,000 UNITS/ML VIAL SQ SCH ×2 (09:41→22:08)
[2017-01-21 10:19] LABS: HEMATOCRIT 40.7 % (35.0-46.0); HEMOGLOBIN 13.4 GM/DL (11.6-15.3); MEAN CELL VOLUME 85.8 FL (80.0-100.0); MEAN CORPUSCULAR HEMOGLOBIN 28.3 PG (27.0-34.0); MEAN CORPUSCULAR HGB CONC 32.9 % (32.0-36.0); MEAN PLATELET VOLUME 9.4 FL (7.0-11.0); PLATELET COUNT 165 TH/MM3 (150-450); RED BLOOD COUNT 4.74 MIL/MM3 (4.00-5.30); RED CELL DISTRIBUTION WIDTH 14.7 % (11.6-17.2); WHITE BLOOD COUNT 4.5 TH/MM3 (4.0-11.0)
[2017-01-21 10:55] LABS: BICARBONATE 21.7 MEQ/L (21.0-32.0); CALCIUM 7.6 MG/DL (8.5-10.1); CREATININE 4.01 MG/DL (0.50-1.00)
[2017-01-21 12:33] VITALS: BP 123/65; PULSE 66; RESP 20; TEMP 97.5; O2SAT 94
[2017-01-21] MEDS: CALAMINE/PRAMOXINE LOTION 180 ML BTL TOPICAL SCH ×2 (14:46→22:08)
--- NOTE | 2017-01-21 16:33 | HHI.PR ---
Subjective Remarks Follow-up visit shingles, altered mental status, acute failure. Patient seen and examined today lying in bed. Granddaughter at the bedside but she was leaving. Patient states she is doing well. States she doesn't know why she is in the hospital. Discussed and explained with patient course of events, her condition, and the plan of treatment. Denies pain or discomfort. Complaints of itching on the right chest going under her breast portion were to shingles is present. Denies any nausea, vomiting, diarrhea. Denies any shortness of breath or dyspnea. Denies chest pain or palpitations. Objective Vitals Vital Signs Date Time Temp Pulse Resp B/P (MAP) Pulse Ox O2 Delivery O2 Flow Rate FiO2 01/21/17 12:33 97.5 66 20 123/65 (84) 94 01/21/17 08:00 97.5 67 20 150/83 (105) 99 01/21/17 04:00 98.6 59 18 134/75 (94) 96 01/21/17 00:00 97.7 73 20 125/82 (96) 96 01/20/17 20:00 96.7 60 18 129/64 (85) 90 01/20/17 18:00 64 01/20/17 17:03 96.2 75 20 116/71 (86) 95 I/O 01/20/17 01/20/17 01/20/17 01/21/17 01/21/17 01/21/17 07:00 15:00 23:00 07:00 15:00 23:00 Intake Total 360 ml Output Total 625 ml 180 ml Balance -265 ml -180 ml Intake Oral 360 ml Output Urine Total 625 ml 180 ml # Voids 3 2 Result Diagram: 01/21/1714 01/21/1714 Imaging Last Impressions Chest X-Ray 01/18/17 192 Signed Impressions: Service Date/Time: Wednesday, January 18, 2017 19:37 - CONCLUSION: Normal examination. The acromial clavicular joint is widened on the left likely chronic. Contreras Johnson MD Renal Ultrasound 01/18/17 0000 Signed Impressions: Service Date/Time: Wednesday, January 18, 2017 22:39 - CONCLUSION: Renal ultrasound within normal limits. Fernando Jorgensen MD Objective Remarks GENERAL: This is a well-nourished, well-developed patient, in no apparent distress. SKIN: Warm and dry. Right side of the chest under her breast area notable herpetic lesions dry. HEENT: Normocephalic. Pupils equal round and reactive. Nose without bleeding. Airway patent. NECK: Trachea midline. CARDIOVASCULAR: Regular rate and rhythm without murmurs, gallops, or rubs. RESPIRATORY: Clear to auscultation. Breath sounds equal bilaterally. No wheezes , rales, or rhonchi. GASTROINTESTINAL: Abdomen soft, non-tender, nondistended. Bowel Sounds normoactive x4. MUSCULOSKELETAL: Extremities without clubbing, cyanosis. Bilateral lower extremity trace edema. NEUROLOGICAL: Awake and alert. Oriented to time, place, person. No focal neuro deficit. Moves all extremities. Normal speech. A/P Problem List: (1) Acute renal failure ICD Code: N17.9 - Acute kidney failure, unspecified Status: Acute (2) Shingles outbreak ICD Code: B02.9 - Zoster without complications Status: Acute Assessment and Plan 86-year-old female presents with acute kidney injury and herpes zoster of unknown duration with decreased by mouth intake for the past 10 days due to fatigue Acute renal failure - Most likely secondary from dehydration since patient had decreased oral intake for the past 10 days. - Renal ultrasound normal examination - Continue with IV fluids. - Continue with strict ins and outs. Avoid nephrotoxins. - Building Superintendent consulted recommends continued IV fluids for now. - Renal indices is slowly improving. ANIMAL HUSBANDRY PROFESSOR 4.18-->4.26 -->4.01 - Will adjust Valtrex to renal dose of 1 g every 24 hours Herpes zoster - Duration of rash unknown to patient and daughter - Continue with Valacyclovir renal dose - Patient complain of itchiness on Atarax, Claritin,, and lotion Anemia - Unknown baseline. No active bleeding. May be due to acute renal failure vs anemia of chronic disease - Stable and within normal range now. DVT prophylaxis Heparin Discharge Planning Plan to DC when improved renal indices and cleared by nephrology. CM following. Not ready. Problem Qualifiers (1) Acute renal failure: Qualified Codes: N17.9 - Acute kidney failure, unspecified (2) Shingles outbreak: Qualified Codes: B02.9 - Zoster without complications Sohail Marie [facility] Jan 21, 2017 16:33
[2017-01-21 18:00] VITALS: PULSE 64
--- NOTE | 2017-01-21 18:56 | HHI.NPPN ---
Subjective History of Present Illness 86-year-old female with past medical history of hypertension, cerebrovascular accident, ischemic heart disease, osteoarthritis was brought to the hospital because of shingles in the back. I was called to see the patient because of elevated BUN and creatinine. The patient was found to have creatinine of 4.1. Her Creatinine was 0.8 in 2011. Additional Remarks Patient is more alert, not in distress. Objective Data Data 01/21/17 01/22/17 19:00 07:00 Intake Total 1920 ml Balance 1920 ml IV Total 1920 ml Vital Signs Date Time Temp Pulse Resp B/P (MAP) Pulse Ox O2 Delivery O2 Flow Rate FiO2 01/21/17 12:33 97.5 66 20 123/65 (84) 94 01/21/17 08:00 97.5 67 20 150/83 (105) 99 01/21/17 04:00 98.6 59 18 134/75 (94) 96 01/21/17 00:00 97.7 73 20 125/82 (96) 96 01/20/17 20:00 96.7 60 18 129/64 (85) 90 -: 01/21/17 0914 01/21/17 0914 Physical Exam General Appearance: No Acute Distress, Comfortable Eyes Eye Exam: Pupils Equal Throat Throat Exam: Oral Mucosa [place] & Moist Neck Neck Exam: Neck Supple Pulmonary Resp Exam: Breath Sounds Equal, No Distress, Rhonchi, Decreased Bases Cardiology CV Exam: Regular, Normal Sinus Rhythm Gastrointestinal/Abdomen GI Exam: Soft, Non-Tender, Bowel Sounds Present, Non-Distended Integumentary Skin Exam: Lesion(s) (rash with few vesicles in upper back.) Extremeties Extremities Exam: No Edema Neurologic Neuro Exam: Alert, Awake Assessment/Plan Assessment Summary: ANNA/Acute Renal Failure, Dehydration Problem List: (1) Macular degeneration, age related, nonexudative ICD Codes: H35.31 - Nonexudative age-related macular degeneration Status: Acute (2) Shingles outbreak ICD Codes: B02.9 - Zoster without complications Status: Acute (3) Acute renal failure ICD Codes: N17.9 - Acute kidney failure, unspecified Status: Acute Plan Patient has Acute kidney injury. Her Creatinine was 0.8 in 2011. Now non oliguric. Renal U/S showing normal size kidneys. Creatinine is slightly better, 4.0, Continue IVF, follow the urine out put and BMP. Avoid Nephrotoxins. Problem Qualifiers (1) Shingles outbreak: Qualified Codes: B02.9 - Zoster without complications (2) Acute renal failure: Qualified Codes: N17.9 - Acute kidney failure, unspecified Candis Pascal MD Jan 21, 2017 18:56
[2017-01-21 20:00] VITALS: BP 128/63; PULSE 61; RESP 18; TEMP 97.4; O2SAT 95
[2017-01-22] VITALS: BP 152/73; PULSE 62; RESP 18; TEMP 98.9; O2SAT 97
[2017-01-22] MEDS: SODIUM CHLOR 0.9% 1000 ML INJ 1,000 ML IV SCH ×2 (03:11→21:18)
[2017-01-22 07:00] VITALS: BP 177/93; PULSE 80; RESP 20; TEMP 96.1; O2SAT 95
[2017-01-22] MEDS: LORATADINE 10 MG TAB PO SCH (08:46)
[2017-01-22] MEDS: HEPARIN SODIUM - SQ 10,000 UNITS/ML VIAL SQ SCH ×2 (08:46→21:06)
[2017-01-22] MEDS: valACYclovir HCL 500 MG TAB PO SCH (08:47)
[2017-01-22] MEDS: SODIUM CHLORIDE 0.9% FLUSH 10 ML FLUSH IV FLUSH SCH ×2 (08:47→21:17)
[2017-01-22] MEDS: CALAMINE/PRAMOXINE LOTION 180 ML BTL TOPICAL SCH ×2 (09:00→21:17)
[2017-01-22 09:34] LABS: BICARBONATE 20.1 MEQ/L (21.0-32.0); CALCIUM 7.7 MG/DL (8.5-10.1); CREATININE 3.78 MG/DL (0.50-1.00)
[2017-01-22 10:00] VITALS: PULSE 69
--- NOTE | 2017-01-22 14:43 | HHI.NPPN ---
Subjective History of Present Illness 86-year-old female with past medical history of hypertension, cerebrovascular accident, ischemic heart disease, osteoarthritis was brought to the hospital because of shingles in the back. I was called to see the patient because of elevated BUN and creatinine. The patient was found to have creatinine of 4.1. Her Creatinine was 0.8 in 2011. Additional Remarks Patient is more alert, sitting on the chair and has itching in upper back, not eating well. Objective Data Data 01/22/17 01/23/17 19:00 07:00 Output Total 125 ml Balance -125 ml Output Urine Total 125 ml # Voids 2 Vital Signs Date Time Temp Pulse Resp B/P (MAP) Pulse Ox O2 Delivery O2 Flow Rate FiO2 01/22/17 10:00 69 01/22/17 07:00 96.1 80 20 177/93 (121) 95 01/22/17 00:00 98.9 62 18 152/73 (99) 97 01/21/17 20:00 97.4 61 18 128/63 (84) 95 01/21/17 18:00 64 -: 01/21/17 0914 01/22/17 0825 Physical Exam General Appearance: No Acute Distress, Comfortable Eyes Eye Exam: Pupils Equal Throat Throat Exam: Oral Mucosa [place] & Moist Neck Neck Exam: Neck Supple Pulmonary Resp Exam: Breath Sounds Equal, No Distress, Rhonchi, Decreased Bases Cardiology CV Exam: Regular, Normal Sinus Rhythm Gastrointestinal/Abdomen GI Exam: Soft, Non-Tender, Bowel Sounds Present, Non-Distended Integumentary Skin Exam: Lesion(s) (rash with few vesicles in upper back.) Extremeties Extremities Exam: No Edema Neurologic Neuro Exam: Alert, Awake Assessment/Plan Assessment Summary: ANNA/Acute Renal Failure, Dehydration Problem List: (1) Macular degeneration, age related, nonexudative ICD Codes: H35.31 - Nonexudative age-related macular degeneration Status: Acute (2) Shingles outbreak ICD Codes: B02.9 - Zoster without complications Status: Acute (3) Acute renal failure ICD Codes: N17.9 - Acute kidney failure, unspecified Status: Acute Plan Patient has Acute kidney injury. Her Creatinine was 0.8 in 2011. Now non oliguric. Renal U/S showing normal size kidneys. Creatinine is slightly better now 3.7. Continue IVF, follow the urine out put and BMP. Encourage oral intake. Problem Qualifiers (1) Shingles outbreak: Qualified Codes: B02.9 - Zoster without complications (2) Acute renal failure: Qualified Codes: N17.9 - Acute kidney failure, unspecified Candis Pascal MD Jan 22, 2017 14:43
[2017-01-22 16:30] VITALS: BP 140/78
[2017-01-22 17:38] VITALS: BP 176/121; PULSE 111; RESP 20; TEMP 97.2; O2SAT 98
--- NOTE | 2017-01-22 18:16 | HHI.PR ---
Subjective Remarks Follow-up visit shingles, altered mental status, acute failure. Patient seen and examined today lying in bed watching TV yet reportedly has lost her glasses (which were on bedside table). Pt noted she was having back pain/itch and was asking for medication to treat it. Denied new complaints. Denied fever, NVD, abdominal/chest pain, cough, shortness of breath, bowel/ bladder issues. Objective Vitals Vital Signs Date Time Temp Pulse Resp B/P (MAP) Pulse Ox O2 Delivery O2 Flow Rate FiO2 01/22/17 17:38 97.2 111 20 176/121 (139) 98 01/22/17 16:30 140/78 (98) 01/22/17 10:00 69 01/22/17 07:00 96.1 80 20 177/93 (121) 95 01/22/17 00:00 98.9 62 18 152/73 (99) 97 01/21/17 20:00 97.4 61 18 128/63 (84) 95 I/O 01/21/17 01/21/17 01/21/17 01/22/17 01/22/17 01/22/17 07:00 15:00 23:00 07:00 15:00 23:00 Intake Total 1920 ml 240 ml Output Total 180 ml 250 ml 275 ml 150 ml Balance -180 ml 1920 ml -250 ml -275 ml 90 ml Intake Oral 240 ml IV Total 1920 ml Output Urine Total 180 ml 250 ml 275 ml 150 ml # Voids 3 Result Diagram: 01/21/17 0914 01/22/17 0825 Imaging Last Impressions Chest X-Ray 01/18/17 1921 Signed Impressions: Service Date/Time: Wednesday, January 18, 2017 19:37 - CONCLUSION: Normal examination. The acromial clavicular joint is widened on the left likely chronic. Contreras Johnson MD Renal Ultrasound 01/18/17 0000 Signed Impressions: Service Date/Time: Wednesday, January 18, 2017 22:39 - CONCLUSION: Renal ultrasound within normal limits. Fernando Jorgensen MD Objective Remarks GENERAL: Pt encountered laying a bed, watching TV, mild distress as related to shingles. SKIN: Warm and dry. Herpetic lesions noted on pt's back and extending to her right flank. HEAD: Normocephalic. EYES: No scleral icterus. No injection or drainage. NECK: Supple, trachea midline. No lymphadenopathy. CARDIOVASCULAR: Regular rate and rhythm without murmurs, gallops, or rubs. RESPIRATORY: Breath sounds equal bilaterally. No accessory muscle use. GASTROINTESTINAL: Abdomen soft, non-tender, nondistended. MUSCULOSKELETAL: No cyanosis, or edema. BACK: Nontender without obvious deformity. No CVA tenderness. Medications and IVs Current Medications Medications (Trade) Dose Ordered Sig/Hao Route Start Time Stop Time Status Last Admin (NS Flush) 2 ml UNSCH PRN IV FLUSH 01/18/17 22:30 (NS Flush) 2 ml BID IV FLUSH 01/19/17 09:00 01/19/17 21:38 (Tylenol) 650 mg Q4H PRN PO 01/18/17 22:30 (Narcan Inj) 0.4 mg UNSCH PRN IV PUSH 01/18/17 22:30 Sodium Chloride 1,000 ml @ 100 mls/hr Q10H IV 01/19/17 00:15 01/22/17 03:11 (Heparin Inj) 5,000 units Q12HR SQ 01/19/17 09:00 01/22/17 08:46 (Claritin) 5 mg DAILY PO 01/19/17 13:15 01/22/17 08:46 (Pill Splitter) 1 ea UNSCH PRN OTHER 01/19/17 13:30 (Caladryl Lotion) 1 applic Q12HR TOPICAL 01/20/17 16:00 01/22/17 09:00 (Atarax) 25 mg Q6H PRN PO 01/20/17 14:30 01/21/17 09:40 (Valtrex) 1,000 mg DAILY PO 01/22/17 09:00 01/22/17 08:47 Urinary Catheter: No A/P Problem List: (1) Acute renal failure ICD Code: N17.9 - Acute kidney failure, unspecified Status: Acute (2) Shingles outbreak ICD Code: B02.9 - Zoster without complications Status: Acute Assessment and Plan 86-year-old female presents with acute kidney injury and herpes zoster of unknown duration with decreased by mouth intake for the past 10 days due to fatigue. Acute renal failure: Nephrology following. Continue IV fluids. Creatine decreased today; FU labs in am. Herpes Zoster: continue current regimen. Acute renal failure - Most likely secondary from dehydration since patient had decreased oral intake for the past 10 days. - Renal ultrasound normal examination - Continue with IV fluids. - Continue with strict ins and outs. Avoid nephrotoxins. - Director Of Software Development consulted recommends continued IV fluids for now. - Renal indices is slowly improving. CHILD DAY CARE PROVIDER 4.18-->4.26 -->4.01 - Will adjust Valtrex to renal dose of 1 g every 24 hours Herpes zoster - Duration of rash unknown to patient and daughter - Continue with Valacyclovir renal dose - Patient complain of itchiness on Atarax, Claritin,, and lotion Anemia - Unknown baseline. No active bleeding. May be due to acute renal failure vs anemia of chronic disease - Stable and within normal range now. DVT prophylaxis Heparin Discussed with pt, RN, and Dr. Huang Discharge Planning Plan to DC when improved renal indices and cleared by nephrology. CM following. Family has list of of facilities and is to inform CM of their choice. Problem Qualifiers (1) Acute renal failure: Qualified Codes: N17.9 - Acute kidney failure, unspecified (2) Shingles outbreak: Qualified Codes: B02.9 - Zoster without complications Frankie Sanchez Jr. Jan 22, 2017 18:16
[2017-01-22 20:00] VITALS: PULSE 65
[2017-01-23] VITALS: BP 145/77; PULSE 65; RESP 19; TEMP 97.3; O2SAT 97
[2017-01-23 04:00] VITALS: BP 160/78; PULSE 82; RESP 19; TEMP 98; O2SAT 96
[2017-01-23 08:00] VITALS: BP 163/83; PULSE 71; RESP 18; TEMP 97.4; O2SAT 97
[2017-01-23] MEDS: LORATADINE 10 MG TAB PO SCH (08:54)
[2017-01-23] MEDS: SODIUM CHLORIDE 0.9% FLUSH 10 ML FLUSH IV FLUSH SCH (08:54)
[2017-01-23] MEDS: valACYclovir HCL 500 MG TAB PO SCH (08:54)
[2017-01-23] MEDS: SODIUM CHLOR 0.9% 1000 ML INJ 1,000 ML IV SCH (08:54)
[2017-01-23] MEDS: HEPARIN SODIUM - SQ 10,000 UNITS/ML VIAL SQ SCH (08:55)
[2017-01-23] MEDS: CALAMINE/PRAMOXINE LOTION 180 ML BTL TOPICAL SCH (08:55)
[2017-01-23] MEDS: hydrOXYzine HCL 25 MG TAB PO PRN (10:36)
[2017-01-23 11:41] LABS: BICARBONATE 17.8 MEQ/L (21.0-32.0); CALCIUM 7.5 MG/DL (8.5-10.1); CREATININE 3.4 MG/DL (0.50-1.00)
[2017-01-23 12:00] VITALS: BP 152/85; PULSE 76; RESP 18; TEMP 96.6; O2SAT 94
--- NOTE | 2017-01-23 13:19 | HHI.PR ---
Subjective Remarks Follow-up visit shingles, altered mental status, acute failure. Patient seen and examined today lying in bed having recently awakened. Pt continues to report her back pain/itch and was asking for medication to treat it. Denied new complaints. Denied fever, NVD, abdominal/chest pain, cough, shortness of breath, bowel/ bladder issues. Objective Vitals Vital Signs Date Time Temp Pulse Resp B/P (MAP) Pulse Ox O2 Delivery O2 Flow Rate FiO2 01/23/17 08:00 97.4 71 18 163/83 (109) 97 01/23/17 04:00 98.0 82 19 160/78 (105) 96 01/23/17 00:00 97.3 65 19 145/77 (99) 97 01/22/17 20:00 65 01/22/17 17:38 97.2 111 20 176/121 (139) 98 01/22/17 16:30 140/78 (98) I/O 01/22/17 01/22/17 01/22/17 01/23/17 01/23/17 01/23/17 07:00 15:00 23:00 07:00 15:00 23:00 Intake Total 1112 ml 1657 ml 1245 ml Output Total 250 ml 275 ml 150 ml 900 ml Balance -250 ml -275 ml 962 ml 757 ml 1245 ml Intake Oral 240 ml 600 ml 245 ml IV Total 872 ml 1057 ml 1000 ml Output Urine Total 250 ml 275 ml 150 ml 900 ml # Voids 3 2 2 # Bowel Movements 0 Result Diagram: 01/21/17 0914 01/23/17 0719 Imaging Last Impressions Chest X-Ray 01/18/17 1921 Signed Impressions: Service Date/Time: Wednesday, January 18, 2017 19:37 - CONCLUSION: Normal examination. The acromial clavicular joint is widened on the left likely chronic. Contreras Johnson MD Renal Ultrasound 01/18/17 0000 Signed Impressions: Service Date/Time: Wednesday, January 18, 2017 22:39 - CONCLUSION: Renal ultrasound within normal limits. Fernando Jorgensen MD Objective Remarks GENERAL: Pt encountered laying a bed, NAD. SKIN: Warm and dry. Herpetic lesions noted on pt's back and extending to her right flank. HEAD: Normocephalic. EYES: No scleral icterus. No injection or drainage. NECK: Supple, trachea midline. No lymphadenopathy. CARDIOVASCULAR: Regular rate and rhythm without murmurs, gallops, or rubs. RESPIRATORY: Breath sounds equal bilaterally. No accessory muscle use. GASTROINTESTINAL: Abdomen soft, non-tender, nondistended. MUSCULOSKELETAL: No cyanosis, or edema. BACK: Nontender without obvious deformity. No CVA tenderness. Herpetic lesions as above. Medications and IVs Current Medications Medications (Trade) Dose Ordered Sig/Hao Route Start Time Stop Time Status Last Admin (NS Flush) 2 ml UNSCH PRN IV FLUSH 01/18/17 22:30 (NS Flush) 2 ml BID IV FLUSH 01/19/17 09:00 01/19/17 21:38 (Tylenol) 650 mg Q4H PRN PO 01/18/17 22:30 (Narcan Inj) 0.4 mg UNSCH PRN IV PUSH 01/18/17 22:30 Sodium Chloride 1,000 ml @ 100 mls/hr Q10H IV 01/19/17 00:15 01/22/17 21:18 (Heparin Inj) 5,000 units Q12HR SQ 01/19/17 09:00 01/23/17 08:55 (Claritin) 5 mg DAILY PO 01/19/17 13:15 01/23/17 08:54 (Pill Splitter) 1 ea UNSCH PRN OTHER 01/19/17 13:30 (Caladryl Lotion) 1 applic Q12HR TOPICAL 01/20/17 16:00 01/23/17 08:55 (Atarax) 25 mg Q6H PRN PO 01/20/17 14:30 01/23/17 10:36 (Valtrex) 1,000 mg DAILY PO 01/22/17 09:00 01/23/17 08:54 Urinary Catheter: No A/P Problem List: (1) Acute renal failure ICD Code: N17.9 - Acute kidney failure, unspecified Status: Acute (2) Shingles outbreak ICD Code: B02.9 - Zoster without complications Status: Acute Assessment and Plan 86-year-old female presents with acute kidney injury and herpes zoster of unknown duration with decreased by mouth intake for the past 10 days due to fatigue. Acute renal failure: Nephrology following. Continue IV fluids. Creatine continues to decrease (3.40 this morning); FU labs in am. Herpes Zoster: Atarax currently PRN to be scheduled. Acute renal failure - Most likely secondary from dehydration since patient had decreased oral intake for the past 10 days. - Renal ultrasound normal examination - Continue with IV fluids. - Continue with strict ins and outs. Avoid nephrotoxins. - Dyeing Machine Back Tender consulted recommends continued IV fluids for now. - Renal indices is slowly improving. PATROL POLICE SERGEANT 4.18-->4.26 -->4.01 - Will adjust Valtrex to renal dose of 1 g every 24 hours Herpes zoster - Duration of rash unknown to patient and daughter - Continue with Valacyclovir renal dose - Patient complain of itchiness on Atarax, Claritin,and lotion. Anemia - Unknown baseline. No active bleeding. May be due to acute renal failure vs anemia of chronic disease - Stable and within normal range now. DVT prophylaxis Heparin Discussed with pt, RN, and Dr. Huang Discharge Planning Plan to DC when improved renal indices and cleared by nephrology. CM following. Family has list of of facilities and is to inform CM of their choice. Problem Qualifiers (1) Acute renal failure: Qualified Codes: N17.9 - Acute kidney failure, unspecified (2) Shingles outbreak: Qualified Codes: B02.9 - Zoster without complications Frankie Sanchez Jr. Jan 23, 2017 13:19
[2017-01-23] MEDS ORDERED: hydrOXYzine HCL 25 MG TAB PO SCH (14:00)
[2017-01-23 16:00] VITALS: BP 180/99; PULSE 82; RESP 18; TEMP 96.4; O2SAT 94
[2017-01-23] MEDS ORDERED: PRAM1LOT4 TOPICAL (16:07)
[2017-01-23] MEDS ORDERED: VALT500T PO (16:07)
[2017-01-23] MEDS ORDERED: HYDR-3133 PO (16:07)
[2017-01-23] MEDS ORDERED: CLAR10TA7 PO (16:07)
--- NOTE | 2017-01-23 16:08 | HHI.DS ---
Discharge Summary Admission Date Jan 18, 2017 at 21:47 Admitting Diagnosis Acute Renal Failure/Shingles (1) Acute renal failure ICD Code: N17.9 - Acute kidney failure, unspecified Status: Acute (2) Shingles outbreak ICD Code: B02.9 - Zoster without complications Status: Acute Brief History - From Admission 86-year-old female brought to the emergency department for altered mental status. The patient's daughter provided most of the history to the emergency department physician. On our interview, the patient could only tell me that she has not been feeling well for some period of time. She also reports pain along her right upper thorax. Per emergency department records, the patient has been lethargic and has had decreased food intake for the past 1-1/2 days. She denies chest pain, headache, shortness of breath or abdominal pain. Physical exam was remarkable for a zoster-appearing rash in the distribution of T6/T7. Lab work was significant for a creatinine of 4.19 (creatinine from 2012 was 0.83). Chest x-ray showed no evidence of acute disease. Patient without leukocytosis and is afebrile. CBC/BMP: 01/21/17 0914 01/23/17 0719 Significant Findings Laboratory Tests Test 01/21/17 09:14 01/22/17 08:25 01/23/17 07:19 Blood Urea Nitrogen 50 MG/DL (7-18) 47 MG/DL (7-18) 42 MG/DL (7-18) Creatinine 4.01 MG/DL (0.50-1.00) 3.78 MG/DL (0.50-1.00) 3.40 MG/DL (0.50-1.00) Random Glucose 73 MG/DL (74-106) 73 MG/DL (74-106) 57 MG/DL (74-106) Calcium Level 7.6 MG/DL (8.5-10.1) 7.7 MG/DL (8.5-10.1) 7.5 MG/DL (8.5-10.1) Estimat Glomerular Filtration Rate 11 ML/MIN (>89) 11 ML/MIN (>89) 13 ML/MIN (>89) Chloride Level 110 MEQ/L (98-107) 114 MEQ/L (98-107) Carbon Dioxide Level 20.1 MEQ/L (21.0-32.0) 17.8 MEQ/L (21.0-32.0) PE at Discharge GENERAL: Pt encountered laying a bed, NAD. SKIN: Warm and dry. Herpetic lesions noted on pt's back and extending to her right flank. HEAD: Normocephalic. EYES: No scleral icterus. No injection or drainage. NECK: Supple, trachea midline. No lymphadenopathy. CARDIOVASCULAR: Regular rate and rhythm without murmurs, gallops, or rubs. RESPIRATORY: Breath sounds equal bilaterally. No accessory muscle use. GASTROINTESTINAL: Abdomen soft, non-tender, nondistended. MUSCULOSKELETAL: No cyanosis, or edema. BACK: Nontender without obvious deformity. No CVA tenderness. Herpetic lesions as above. Pt Condition on Discharge: Stable Discharge Disposition: Discharge to SNF Discharge Instructions DIET: Follow Instructions for: As Tolerated, No Restrictions Activities you can perform: Regular-No Restrictions Lorena Huang MD Jan 23, 2017 16:08
--- NOTE | 2017-01-23 21:25 | HHI.NPPN ---
Subjective History of Present Illness 86-year-old female with past medical history of hypertension, cerebrovascular accident, ischemic heart disease, osteoarthritis was brought to the hospital because of shingles in the back. I was called to see the patient because of elevated BUN and creatinine. The patient was found to have creatinine of 4.1. Her Creatinine was 0.8 in 2011. Additional Remarks Patient is alert, not eating well, not in distress. Objective Data Data 01/23/17 01/24/17 19:00 07:00 Intake Total 1245 ml Balance 1245 ml Intake Oral 245 ml IV Total 1000 ml # Voids 2 # Bowel Movements 1 Vital Signs Date Time Temp Pulse Resp B/P (MAP) Pulse Ox O2 Delivery O2 Flow Rate FiO2 01/23/17 16:00 96.4 82 18 180/99 (126) 94 01/23/17 12:00 96.6 76 18 152/85 (107) 94 01/23/17 08:00 97.4 71 18 163/83 (109) 97 01/23/17 04:00 98.0 82 19 160/78 (105) 96 01/23/17 00:00 97.3 65 19 145/77 (99) 97 -: 01/21/17 0914 01/23/17 0719 Physical Exam General Appearance: No Acute Distress, Comfortable Eyes Eye Exam: Pupils Equal Throat Throat Exam: Oral Mucosa [place] & Moist Neck Neck Exam: Neck Supple Pulmonary Resp Exam: Breath Sounds Equal, No Distress, Rhonchi, Decreased Bases Cardiology CV Exam: Regular, Normal Sinus Rhythm Gastrointestinal/Abdomen GI Exam: Soft, Non-Tender, Bowel Sounds Present, Non-Distended Integumentary Skin Exam: Lesion(s) (rash with few vesicles in upper back.) Extremeties Extremities Exam: No Edema Neurologic Neuro Exam: Alert, Awake Assessment/Plan Assessment Summary: ANNA/Acute Renal Failure, Dehydration Problem List: (1) Macular degeneration, age related, nonexudative ICD Codes: H35.31 - Nonexudative age-related macular degeneration Status: Acute (2) Shingles outbreak ICD Codes: B02.9 - Zoster without complications Status: Acute (3) Acute renal failure ICD Codes: N17.9 - Acute kidney failure, unspecified Status: Acute Plan Patient has Acute kidney injury. Her Creatinine was 0.8 in 2011. Now non oliguric. Renal U/S showing normal size kidneys. Creatinine continue to improve, now 3.4. D/W daughter, need to encourage oral intake. For D/C to SNF. Follow up in 1-2 weeks. Problem Qualifiers (1) Shingles outbreak: Qualified Codes: B02.9 - Zoster without complications (2) Acute renal failure: Qualified Codes: N17.9 - Acute kidney failure, unspecified Candis Pascal MD Jan 23, 2017 21:25
== END 2017-01-23 18:15 | DRG 684 ==
LOC: NEPE 18:12 → NEDA 21:47 → N05B 22:57
PROVIDERS: ADMIT Family Medicine; ATTEND Family Medicine
DX: N17.9 Acute kidney failure, unspecified (principal); B02.9 Zoster without complications; J44.9 Chronic obstructive pulmonary disease, unspecified; F03.90 Unspecified dementia, unspecified severity, without behavioral disturbance, psychotic disturbance, mood disturbance, and anxiety; E86.0 Dehydration; I10 Essential (primary) hypertension; I25.10 Atherosclerotic heart disease of native coronary artery without angina pectoris; Z95.5 Presence of coronary angioplasty implant and graft; H91.92 Unspecified hearing loss, left ear; I25.2 Old myocardial infarction; R41.82 Altered mental status, unspecified; Z86.73 Personal history of transient ischemic attack (TIA), and cerebral infarction without residual deficits; H26.9 Unspecified cataract; M19.90 Unspecified osteoarthritis, unspecified site; R32 Unspecified urinary incontinence; D64.9 Anemia, unspecified; D72.819 Decreased white blood cell count, unspecified; H35.3190 Nonexudative age-related macular degeneration, unspecified eye, stage unspecified
CPT/HCPCS: 71010; 76775; 76937; 80048; 80053; 81001; 82550; 83605; 83735; 83935; 84155; 84300; 84484; 85025; 85027; 85610; 85730; 93005; 96361; 96374; J1644; J2405; J7030